=== PATIENT | male | born 1950 | race Caucasian/White ===

== ENCOUNTER 2016-04-21 14:36 | Emergency (ER) | payer BC ==
[2016-04-21 15:20] VITALS: BP 141/75
[2016-04-21] MEDS ORDERED: ORPHENADRINE CITRATE 60 MG/2ML IM ONE (17:01)
[2016-04-21] MEDS ORDERED: HALOPERIDOL LACTATE 5 MG/ML VIAL IM ONE (17:01)
[2016-04-21] MEDS ORDERED: KETOROLAC TROMETHAMINE 60 MG/2 ML VIAL IM ONE (17:01)
--- NOTE | 2016-04-23 01:33 | ED Physician Documentation ---
Low Back Pain - HISTORIAN Historian: patient - HPI Stated Complaint: Same LBP as 2-3 weeks prior Chief Complaint: Low Back Pain/ Injury Additional Information: chronic, was seen 2-3 weeks ago, same History: back pain Onset: days ago (21) Duration: continues in ED Recent Injury: Yes Context: lifting Where: work Other Injuries: back Severity: moderate Quality: burning Front/Back of Body, Lg (Color): 1 - pain Worsened By:: movement to RT flexion, movement to LT flexion Further Comments: no - ROS CONST: no problems CVS/RESP: none EYES/ENT: none MS/SKIN/LYMPH: leg pain, back pain Neuro/Psych: none GI/: denies: abdominal pain, black stools - PAST HX Past History: other (htn) Surgeries/Procedures: none Immunizations: referred to PCP Allergies/Adverse Reactions: Allergies Allergy/AdvReac Type Severity Reaction Status Date / Time No Known Allergies Allergy Verified 03/30/16 14:02 Home Medications: Ambulatory Orders Medication Instructions Recorded Trazodone HCl 100 mg PO HS u2 06/10/15 Diazepam [Valium] 5 mg PO QID PRN #15 tablet 09/15/15 Tramadol HCl [Ultram] 50 mg PO Q6 PRN #20 tablet 09/15/15 Baclofen [Lioresal] 10 mg PO TID PRN #30 tablet 03/30/16 Ketorolac Tromethamine [Toradol] 10 mg PO TID #15 tablet 03/30/16 - SOCIAL HX Smoking History: cigarettes Alcohol Use: none Drug Use: none - FAMILY HX Family History: no significant history - VITAL SIGNS Vital Signs: Vital Signs Temp Pulse Resp BP Pulse Ox 70 16 141/75 04/21/16 22:26 04/21/16 22:26 04/21/16 22:26 - REVIEWED ASSESSMENTS Nursing Assessment Reviewed: Yes Vitals Reviewed: Yes Progress - Results/Orders Results/Orders: none ordered - Progress Progress: pt. given Toradol 60 mg im, Norflex 60 mg im and Haldol 10 mg im in er Critical Care Note - Critical Care Note Total Time (mins): 0 ED Results Lab/Radiology - Lab Results Lab Results: one ordered - Radiology Radiology Impressions: old x-rays reviewed from most recent ER visit - Orders Orders: ED Orders Category Date Time Status Haloperidol Lactate [Haldol] Med 04/21/16 17:01 Discontinued 10 mg IM NOW ONE Ketorolac Tromethamine [Toradol] Med 04/21/16 17:01 Discontinued 60 mg IM NOW ONE Orphenadrine Citrate [Norflex] Med 04/21/16 17:01 Discontinued 60 mg IM NOW ONE Low Back Pain/Injury - Physical Exam General Appearance: alert, moderate distress EENT: eye inspection normal, ENT inspection normal, pharynx normal, no signs of dehydration, NATE, no nystagmus, TM's nml Neck: non-tender, painless ROM, trachea midline. No: vertebral point-tendernes (lumbar vertebrae) Resp/CVS: chest non-tender, breath sounds nml, heart sounds nml, no resp. distress, lungs clear, reg. rate & rhythm Abdomen: non-tender, no organomegaly, no pulsatile mass Back: vertebral point-tendernes. No: muscle spasm Straight Leg Raising: Positive Left, Positive Right Neuro/Psych: oriented x3, motor nml, sensation nml, bilat. doriflexion nml, reflexes nml, mood/affect nml Skin: warm/dry, normal color Extremities: non-tender, normal range of motion, no evidence of injury, no edema Discharge Clincal Impression: Lumbar strain Qualifiers: Encounter type: initial encounter Qualified Code(s): S39.012A - Strain of muscle, fascia and tendon of lower back, initial encounter Referrals: Freddy Willingham MD [Primary Care Provider] - 2 Days Home Medications: Ambulatory Orders Trazodone HCl 100 mg PO HS u2 06/10/15 Diazepam [Valium] 5 mg PO QID PRN #15 tablet 09/15/15 Tramadol HCl [Ultram] 50 mg PO Q6 PRN #20 tablet 09/15/15 Baclofen [Lioresal] 10 mg PO TID PRN #30 tablet 03/30/16 Ketorolac Tromethamine [Toradol] 10 mg PO TID #15 tablet 03/30/16 Comments: pt discharged with scripts Condition: Stable Disposition: 01 HOME, SELF-CARE Decision to Admit: NO Decision Time: 22:20
== END 2016-04-21 17:30 | disposition home or self-care (01) ==
LOC: ED 14:36
DX: S39.012A Strain of muscle, fascia and tendon of lower back, initial encounter (principal); X58.XXXA Exposure to other specified factors, initial encounter; Y93.9 Activity, unspecified; Y99.9 Unspecified external cause status
CPT/HCPCS: J1630; J1885; J2360; 96372; 99283

== ENCOUNTER 2016-05-01 14:14 | Emergency (ER) | payer BC ==
[2016-05-02 14:02] VITALS: BP 107/49
== END 2016-05-01 15:50 | disposition left against medical advice (07) ==
LOC: ED 14:14
DX: M54.9 Dorsalgia, unspecified (principal)
CPT/HCPCS: 99281

== ENCOUNTER → 2016-05-02 | Emergency (ER) | payer BC ==
[~2016-05-02] MED LIST: IPRATROPIUM/ALBUTEROL SULFATE 3 ML AMPUL.NEB NEB ONE
--- NOTE | 2016-05-02 09:39 | ED Physician Documentation ---
General Adult - HISTORIAN Historian: patient - HPI Stated Complaint: shortness of breath x 3 days Chief Complaint: General Adult Additional Information: Feels like he can't breathe. Coughing more than usual. Has appt with nurse first aid on 05/05. Says he smoked his last cigarette today. Duoneb at 0700 today. Seen in clinic on 04/29 and given 50 mg prednisone daily x 5 days, but says it didn't help. - ROS CONST: denies: fever, sweating CVS/RESP: shortness of breath, cough - PAST HX Past History: COPD, hypertension, other (spinal stenosis) Surgeries/Procedures: other (rotator cuff, stomach, right ankle) Immunizations: UTD (flu shot in March) Allergies/Adverse Reactions: Allergies Allergy/AdvReac Type Severity Reaction Status Date / Time No Known Allergies Allergy Verified 05/02/16 09:22 Home Medications: Ambulatory Orders Medication Instructions Recorded Trazodone HCl 100 mg PO HS u2 06/10/15 Diazepam [Valium] 5 mg PO QID PRN #15 tablet 09/15/15 Tramadol HCl [Ultram] 50 mg PO Q6 PRN #20 tablet 09/15/15 Baclofen [Lioresal] 10 mg PO TID PRN #30 tablet 03/30/16 Ketorolac Tromethamine [Toradol] 10 mg PO TID #15 tablet 03/30/16 Albuterol Sulfate 2.5 mg NEB Q6H #100 ampul.neb 05/02/16 - SOCIAL HX Smoking History: cigarettes (1 PPD > 50 years) - FAMILY HX Family History: No - VITAL SIGNS Vital Signs: Vital Signs Temp Pulse Resp BP Pulse Ox 98.3 F 74 20 128/60 98 05/02/16 09:05 05/02/16 09:05 05/02/16 09:05 05/02/16 09:05 05/02/16 09:05 - REVIEWED ASSESSMENTS Nursing Assessment Reviewed: Yes Vitals Reviewed: Yes Progress - Progress Progress: Chest two views HISTORY: Shortness of breath, COPD, smoker FINDINGS: The emphysema is observed without pulmonary infiltrate or pleural effusion. Heart size is normal. Osseous structures are unremarkable. IMPRESSION: Emphysema. Electronically signed on May 02, 2016 9:56:36 AM CAPITAL EQUIPMENT SPECIALIST by: Luan Walters ED Results Lab/Radiology - Orders Orders: ED Orders Category Date Time Status CHEST P.A.&LAT 2 VIEWS [RAD] Stat Exams 05/02/16 Ordered Ipratropium/Albuterol Sulfate [Duoneb] Med 05/02/16 09:22 Discontinued 3 ml NEB NOW ONE General Adult Physical Exam - PHYSICAL EXAM GENERAL APPEARANCE: no distress EENT: eye inspection normal, pharynx normal NECK: normal inspection, supple RESPIRATORY: breath sounds normal (markedly decreased), wheezes, rales, rhonchi CVS: reg rate & rhythm, heart sounds normal, no murmur RECTAL: deferred BACK: normal inspection SKIN: warm/dry, normal color EXTREMITIES: no evidence of injury NEURO: CN's nml as tested, motor nml, sensation nml Discharge Clincal Impression: COPD (chronic obstructive pulmonary disease) Prescriptions: Albuterol Sulfate 2.5 mg NEB Q6H #100 ampul.neb Additional Instructions: Follow up with the nurse first aid on . Home Medications: Ambulatory Orders Trazodone HCl 100 mg PO HS u2 06/10/15 Diazepam [Valium] 5 mg PO QID PRN #15 tablet 09/15/15 Tramadol HCl [Ultram] 50 mg PO Q6 PRN #20 tablet 09/15/15 Baclofen [Lioresal] 10 mg PO TID PRN #30 tablet 03/30/16 Ketorolac Tromethamine [Toradol] 10 mg PO TID #15 tablet 03/30/16 Albuterol Sulfate 2.5 mg NEB Q6H #100 ampul.neb 05/02/16 Condition: Fair Disposition: 01 HOME, SELF-CARE Decision to Admit: NO Decision Time: 10:07
--- NOTE | 2016-05-02 11:49 | Diagnostic Imaging Report ---
[facility] [id number] [facility].[address] [id number] Report Submission Date: May 02, 2016 9:56:36 AM DELPHI PROGRAMMER Patient Study Name: COBY BRITTON Date: May 02, 2016 9:29:28 AM DELPHI PROGRAMMER Modality Type: CR Gender: M Description: CHEST : 52 Institution: [facility] Physician: SHANTELLE YOUNGBLOOD Chest two views HISTORY: Shortness of breath, COPD, smoker FINDINGS: The emphysema is observed without pulmonary infiltrate or pleural effusion. Heart size is normal. Osseous structures are unremarkable. IMPRESSION: Emphysema. Electronically signed on May 02, 2016 9:56:36 AM DELPHI PROGRAMMER by: Luan WHITMORE
[2016-05-02 17:29] VITALS: BP 107/49
== END | disposition home or self-care (01) ==
LOC: ED 08:50
DX: J44.9 Chronic obstructive pulmonary disease, unspecified (principal); I10 Essential (primary) hypertension; F17.210 Nicotine dependence, cigarettes, uncomplicated
CPT/HCPCS: 71020; 94640; 99283

== ENCOUNTER 2018-12-31 09:08 | Outpatient (CLI) | payer OTHER ==
[2016-05-02 17:29] VITALS: BP 107/49
[2018-12-31 09:59] LABS: eGFR (Non-African) > 60
== END 2018-12-31 09:10 ==
LOC: RT 09:08
PROVIDERS: ATTEND Pain Medicine Interventional Pain Medicine
DX: Z01.818 Encounter for other preprocedural examination (principal)
CPT/HCPCS: 36415; 80048; 93005